=== PATIENT | male | born 1955 | race American Indian/Alaskan Native ===

== ENCOUNTER 2019-11-17 17:21 | Emergency (ER) | payer MEDICARE ==
[2019-11-17 17:32] VITALS: BP 195/83
[2019-11-17] MEDS ORDERED: LACTULOSE 20 GM/30 ML ORAL LIQD PO ONE (20:18)
[2019-11-17] MEDS ORDERED: MAGNESIUM CITRATE 300 ML ORAL LIQD PO ONE (20:18)
[2019-11-17] MEDS ORDERED: GLYCERIN ADULT 2 GRAM RECT SUPP PR ONE (20:18)
--- NOTE | 2019-11-17 21:01 | XRay Report ---
FLAT AND UPRIGHT VIEWS OF THE ABDOMEN, 5 IMAGES INDICATION: constipation. COMPARISON: No relevant prior imaging study available. FINDINGS: No free air is identified. Phleboliths are noted in the pelvis. Constipation is noted. No dilated loops of small bowel. IMPRESSION: 1. Constipation. Signer Name: Phillip Castellon MD Signed: 11/17/2019 8:57 PM Workstation Name: [id number]
--- NOTE | 2019-11-17 21:48 | Emergency Department Report ---
ED Abdominal Pain HPI - General Chief Complaint: Rectal Pain Stated Complaint: HEMMROID/PAIN Source: patient Mode of arrival: Ambulatory Limitations: No Limitations - History of Present Illness Initial Comments: Patient is a 64-year-old -Swiss male with history of hypertension who presents to the ED with complaint of acute onset persistent rectal pain from external hemorrhoids due to constipation for the last 3 days. Patient states that he went to an urgent care clinic for low back pain and was prescribed Robaxin, tramadol and ibuprofen and has been taking this medication for the last 5 days. Patient states that 3 days ago he stopped having a bowel movement and since then he has been trying to have a bowel movement with no relief. Patient states that the last 2 days the external hemorrhoids have increased in size with worsening rectal pain since he has not been able to have any bowel movement. Patient denies nausea, vomiting, fever, chills, abdominal pain, dizziness, syncope, chest pain, shortness of breath, dysuria, urinary frequency and urgency or headache and testicular pain or rectal bleeding. MD Complaint: abdominal pain (constipated), other (rectal pain due to hemorrhoids) -: Sudden, days(s) (3) Location: diffuse Radiation: none Migration to: no migration Severity scale (0 -10): 3 Quality: aching Consistency: constant Improves With: nothing Worsens With: bowel movement Context: other (constipation from opioid pain medications) Associated Symptoms: denies other symptoms, anorexia. denies: nausea, vomiting, diarrhea, fever, chills, constipation, dysuria, hematemesis, hematochezia, melena, hematuria, syncope - Related Data Previous Rx's Medication Instructions Recorded Last Taken Type Dibucaine 1% [Nupercainal] 1 applicatio [place] Q8H #1 tube 11/17/19 Unknown Rx Glycerin Adult 2 gm 3 gm [place] DAILY PRN #10 supp.rect 11/17/19 Unknown Rx Hydrocortisone [Anusol-Hc 2.5% TOP 1 applic RC Q12H #1 cream..g. 11/17/19 Unknown Rx CREAM] Magnesium Citrate 296 ml PO ONCE #3 bottle 11/17/19 Unknown Rx Allergies Allergy/AdvReac Type Severity Reaction Status Date / Time No Known Allergies Allergy Verified 11/17/19 17:23 ED Review of Systems ROS: Stated complaint: HEMMROID/PAIN Other details as noted in HPI Constitutional: denies: chills, fever Eyes: denies: eye pain, eye discharge, vision change ENT: denies: ear pain, throat pain Respiratory: denies: cough, shortness of breath, wheezing Cardiovascular: denies: chest pain, palpitations Endocrine: no symptoms reported Gastrointestinal: constipation, other (rectal pain from hemorrhoids). denies: abdominal pain, nausea, diarrhea Genitourinary: denies: urgency, dysuria Musculoskeletal: denies: back pain, joint swelling, arthralgia Skin: denies: rash, lesions Neurological: denies: headache, weakness, paresthesias Psychiatric: denies: anxiety, depression Hematological/Lymphatic: denies: easy bleeding, easy bruising ED Past Medical Hx - Past Medical History Previous Medical History?: Yes Hx Hypertension: Yes - Surgical History Past Surgical History?: Yes Additional Surgical History: back surgery - Social History Smoking Status: Never Smoker Substance Use Type: None - Medications Home Medications: Home Medications Medication Instructions Recorded Confirmed Last Taken Type Dibucaine 1% [Nupercainal] 1 applicatio [place] Q8H #1 tube 11/17/19 Unknown Rx Glycerin Adult 2 gm 3 gm [place] DAILY PRN #10 supp.rect 11/17/19 Unknown Rx Hydrocortisone [Anusol-Hc 2.5% TOP 1 applic RC Q12H #1 cream..g. 11/17/19 Unknown Rx CREAM] Magnesium Citrate 296 ml PO ONCE #3 bottle 11/17/19 Unknown Rx ED Physical Exam - General Limitations: No Limitations General appearance: alert, in no apparent distress - Head Head exam: Present: atraumatic, normocephalic, normal inspection - Eye Eye exam: Present: normal appearance, PERRL, EOMI - ENT ENT exam: Present: normal exam, normal orophraynx, mucous membranes moist, TM's normal bilaterally, normal external ear exam - Neck Neck exam: Present: normal inspection, full ROM - Respiratory Respiratory exam: Present: normal lung sounds bilaterally. Absent: respiratory distress, wheezes, rales, rhonchi, chest wall tenderness, accessory muscle use, decreased breath sounds, prolonged expiratory - Cardiovascular Cardiovascular Exam: Present: regular rate, normal rhythm, normal heart sounds. Absent: systolic murmur, diastolic murmur, rubs, gallop - GI/Abdominal GI/Abdominal exam: Present: soft, normal bowel sounds. Absent: tenderness, guarding, rebound, hyperactive bowel sounds, hypoactive bowel sounds - Rectal Rectal exam: Present: hemorrhoids (external hemorrhoids with tenderness), tenderness (palpable rectal tenderness due to prominent external hemorrhoids) - Extremities Exam Extremities exam: Present: normal inspection, full ROM, normal capillary refill - Back Exam Back exam: Present: normal inspection, full ROM. Absent: tenderness, CVA tenderness (R), CVA tenderness (L), muscle spasm, paraspinal tenderness, vertebral tenderness - Neurological Exam Neurological exam: Present: alert, oriented X3, CN II-XII intact, normal gait, reflexes normal - Psychiatric Psychiatric exam: Present: normal affect, normal mood - Skin Skin exam: Present: warm, dry, intact, normal color. Absent: rash ED Course Vital Signs 11/17/19 17:31 Temperature 99.2 F Pulse Rate 85 Respiratory 14 Rate Blood Pressure 195/83 [Right] O2 Sat by Pulse 98 Oximetry ED Medical Decision Making - Radiology Data Radiology results: report reviewed, image reviewed Findings [facility] [address] [place] [address] XRay Report Signed Patient: COMFORT MARTE MR#: [id number] : 1955 Acct:[id number] Age/Sex: 64 / M ADM Date: 11/17/19 Loc: ED Attending Dr: Ordering Physician: JONO WOOD Date of Service: 11/17/19 Procedure(s): XR abdomen 2V Accession Number(s): [id number] cc: JONO WOOD Fluoro Time In Minutes: FLAT AND UPRIGHT VIEWS OF THE ABDOMEN, 5 IMAGES INDICATION: constipation. COMPARISON: No relevant prior imaging study available. FINDINGS: No free air is identified. Phleboliths are noted in the pelvis. Constipation is noted. No dilated loops of small bowel. IMPRESSION: 1. Constipation. Signer Name: Phillip Castellon MD Signed: 11/17/2019 8:57 PM Workstation Name: [id number] Transcribed By: KYLIE Dictated By: Phillip Castellon MD Electronically Authenticated By: Phillip Castellon MD Signed Date/Time: 11/17/192056 DD/ 55 TD/TT: - Medical Decision Making This is a 64-year-old -Swiss male with history of hypertension who presents to the ED with complaint of acute onset persistent rectal pain from external hemorrhoids due to constipation for the last 3 days. Patient states that he went to an urgent care clinic for low back pain and was prescribed Robaxin, tramadol and ibuprofen and has been taking this medication for the last 5 days. Patient states that 3 days ago he stopped having a bowel movement and since then he has been trying to have a bowel movement with no relief. Patient states that the last 2 days the external hemorrhoids have increased in size with worsening rectal pain since he has not been able to have any bowel movement. In the ED, patient is alert and oriented x3 and is not in distress but appears to be uncomfortable. Abdomen x-ray shows constipation. Patient was treated for constipation in the ED and also given prescription for more stool softeners and laxatives as well as ointment for the hemorrhoids. Patient was advised to follow-up with his primary care physician in 3 to 5 days for reevaluation or return to the ED immediately if symptoms get worse. Patient was also advised to stop taking tramadol as this may be the cause of his constipation. - Differential Diagnosis Constipation; hemorrhoids; rectal abscess; SBO Critical care attestation.: If time is entered above; I have spent that time in minutes in the direct care of this critically ill patient, excluding procedure time. ED Disposition Clinical Impression: External hemorrhoids, Constipation due to opioid therapy Disposition: DC-01 TO HOME OR SELFCARE Is pt being admited?: No Does the pt Need Aspirin: No Condition: Stable Instructions: Hemorrhoids (ED), Constipation (ED) Additional Instructions: Take medication as advised, drink plenty of fluids and follow-up with your primary care physician in 3 to 5 days for reevaluation. Return to the ED immediately if symptoms get worse. Prescriptions: Hydrocortisone [Anusol-Hc 2.5% TOP CREAM] 1 applic RC Q12H #1 cream..g. Glycerin Adult 2 gm 3 gm TX DAILY PRN #10 supp.rect PRN Reason: Constipation Magnesium Citrate 296 ml PO ONCE #3 bottle Dibucaine 1% [Nupercainal] 1 applicatio TX Q8H #1 tube Referrals: MIGUEL CHIN MD [Primary Care Provider] - 3-5 Days Time of Disposition: 21:55 Print Language: DIVEHI
== END 2019-11-17 22:16 | disposition home or self-care (01) ==
LOC: ED 17:21
DX: K64.4 Residual hemorrhoidal skin tags (principal); K59.00 Constipation, unspecified; I10 Essential (primary) hypertension; Z79.899 Other long term (current) drug therapy; Z98.890 Other specified postprocedural states
CPT/HCPCS: 74019

== ENCOUNTER 2021-09-09 08:30 | Emergency (ER) | payer MEDICARE ==
[2021-09-09 08:43] VITALS: BP 188/80
[2021-09-09] MEDS ORDERED: hydroCHLOROthiazide 25 MG TAB PO ONE (09:36)
--- NOTE | 2021-09-09 09:42 | Emergency Department Report ---
ED General Adult HPI - General Chief complaint: High BP Stated complaint: HIGH BLOOD PRESSURE PUI?: No Source: patient Mode of arrival: Ambulatory Limitations: No Limitations - History of Present Illness Initial comments: Patient is a 65-year-old male presents emergency department complaint of episode of dizziness after climbing up the stairs on yesterday. Patient states that he is known to have elevated blood pressures as been diagnosed with hypertension however has not been taking a antihypertensive for the past few months. Patient previously was on hydrochlorothiazide, unsure of dose. Patient reports that he did not have chest pain when he had the episode of dizziness. He did not pass out. Patient notes that he has history of chronic back pain for which she takes meloxicam occasionally. Patient denies any episodes of headache, change in vision, chest pain, shortness of breath, numbness tingling or weakness in the arms or legs. Treatments Prior to Arrival: none - Related Data Previous Rx's Medication Instructions Recorded Last Taken Type Dibucaine 1% [Nupercainal] 1 applicatio [place] Q8H #1 tube 11/17/19 Unknown Rx Glycerin Adult 2 gm 3 gm [place] DAILY PRN #10 supp.rect 11/17/19 Unknown Rx Hydrocortisone [Anusol-Hc 2.5% TOP 1 applic RC Q12H #1 cream..g. 11/17/19 Unknown Rx CREAM] Magnesium Citrate 296 ml PO ONCE #3 bottle 11/17/19 Unknown Rx hydroCHLOROthiazide [Hctz] 12.5 mg PO QDAY 30 Days #30 capsule 09/09/21 Unknown Rx Allergies Allergy/AdvReac Type Severity Reaction Status Date / Time No Known Allergies Allergy Verified 11/17/19 17:23 ED Review of Systems ROS: Stated complaint: HIGH BLOOD PRESSURE Other details as noted in HPI Constitutional: denies: chills, fever Eyes: denies: vision change ENT: denies: throat pain Respiratory: denies: cough, shortness of breath, SOB with exertion Cardiovascular: denies: chest pain, syncope Endocrine: no symptoms reported Gastrointestinal: denies: abdominal pain, nausea, vomiting Genitourinary: denies: dysuria Musculoskeletal: back pain (chronic) Skin: denies: rash Neurological: denies: headache, weakness Psychiatric: denies: anxiety, depression Hematological/Lymphatic: denies: easy bleeding ED Past Medical Hx - Past Medical History Previous Medical History?: Yes Hx Hypertension: Yes - Surgical History Past Surgical History?: Yes Additional Surgical History: back surgery - Social History Smoking Status: Never Smoker Substance Use Type: None - Medications Home Medications: Home Medications Medication Instructions Recorded Confirmed Last Taken Type Dibucaine 1% [Nupercainal] 1 applicatio [place] Q8H #1 tube 11/17/19 Unknown Rx Glycerin Adult 2 gm 3 gm OK DAILY PRN #10 supp.rect 11/17/19 Unknown Rx Hydrocortisone [Anusol-Hc 2.5% TOP 1 applic RC Q12H #1 cream..g. 11/17/19 Unknown Rx CREAM] Magnesium Citrate 296 ml PO ONCE #3 bottle 11/17/19 Unknown Rx hydroCHLOROthiazide [Hctz] 12.5 mg PO QDAY 30 Days #30 capsule 09/09/21 Unknown Rx ED Physical Exam - General Limitations: No Limitations General appearance: alert, in no apparent distress - Head Head exam: Present: atraumatic, normocephalic - Eye Eye exam: Present: normal appearance - ENT ENT exam: Present: mucous membranes moist - Neck Neck exam: Present: normal inspection - Respiratory Respiratory exam: Present: normal lung sounds bilaterally. Absent: respiratory distress - Cardiovascular Cardiovascular Exam: Present: regular rate, normal rhythm. Absent: systolic murmur, diastolic murmur, rubs, gallop - GI/Abdominal GI/Abdominal exam: Present: soft, normal bowel sounds - Rectal Rectal exam: Present: deferred - Extremities Exam Extremities exam: Present: normal capillary refill, other (chronic atrophy to the R thigh). Absent: pedal edema - Back Exam Back exam: Present: normal inspection - Neurological Exam Neurological exam: Present: alert, oriented X3 - Psychiatric Psychiatric exam: Present: normal affect, normal mood - Skin Skin exam: Present: warm, dry, intact ED Course Vital Signs 09/09/21 08:38 Temperature 98.6 F Pulse Rate 58 L Respiratory 18 Rate Blood Pressure 188/80 O2 Sat by Pulse 98 Oximetry - Reevaluation(s) Reevaluation #1: 09/09/21 11:40 EKG and labs are reassuring. At this time patient has no evidence of end organ damage. Patient feels improved. Given this plan for discharge with patient to have close follow-up with primary care ED Medical Decision Making - Lab Data Result diagrams: 09/09/21 10:14 09/09/21 10:14 - EKG Data -: EKG Interpreted by Me EKG shows normal: sinus rhythm Rate: bradycardia - EKG Data When compared to previous EKG there are: no significant change Interpretation: normal EKG - Medical Decision Making Patient is a 65-year-old male presents emergency department with complaint of episode of dizziness on yesterday. Patient no longer has any symptoms of dizziness and had no CP, headache, SOB or other concerning symptoms. He does however have elevated blood pressures with history of hypertension not currently on medications. Will evaluate fully for ACS, evidence of endorgan damage with EKG, labs, urinalysis. If if labs grossly normal plan for discharge with prescription for antihypertensive as well as instructions to make lifestyle modifications and follow-up with primary care closely. Critical care attestation.: If time is entered above; I have spent that time in minutes in the direct care of this critically ill patient, excluding procedure time. ED Disposition Clinical Impression: Hypertension Disposition: 01 HOME / SELF CARE / HOMELESS Is pt being admited?: No Does the pt Need Aspirin: No Condition: Stable Instructions: Hypertension, Adult, [id number], Hypertension (ED) Prescriptions: hydroCHLOROthiazide [Hctz] 12.5 mg PO QDAY 30 Days #30 capsule Referrals: MALIK VILLASEÑOR MD [Staff Physician] - 3-5 Days Forms: Work/School Release Form(ED) Time of Disposition: 11:40 Print Language: MALAY
[2021-09-09 11:15] LABS: Alanine Aminotransferase 23 units/L (7-56); Albumin 4.5 g/dL (3.9-5); BUN/Creatinine Ratio 13; Blood Urea Nitrogen 14 mg/dL (9-20); Calcium 9.7 mg/dL (8.4-10.2); Hemolysis Index 18
[2021-09-09 11:16] LABS: Hematocrit 35.5 % (35.5-45.6); Hemoglobin 12.5 gm/dl (11.8-15.2); Mean Corpuscular HGB Conc 35 % (32-34); Mean Corpuscular Volume 90 fl (84-94); Platelet Count 168 K/mm3 (140-440); Red Blood Count 3.95 M/mm3 (3.65-5.03); Red Cell Distribution Width 12.9 % (13.2-15.2)
--- NOTE | 2021-09-11 13:10 | Electrocardiograph Report ---
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
== END 2021-09-09 11:55 | disposition home or self-care (01) ==
LOC: ED 08:30
DX: I10 Essential (primary) hypertension (principal); Z98.890 Other specified postprocedural states
CPT/HCPCS: 36415; 80053; 83735; 84484; 85027; 93005; 93010; 99283

== ENCOUNTER 2022-01-27 15:15 | Emergency (ER) | payer MEDICARE ==
--- NOTE | 2022-01-27 17:09 | XRay Report ---
RIGHT HIP 2 VIEWS INDICATION / CLINICAL INFORMATION: Right hip pain after fall. COMPARISON: None available. FINDINGS: BONES and JOINT(S): No acute fracture or subluxation. No significant arthritis. SOFT TISSUES: No significant abnormality. ADDITIONAL FINDINGS: None. IMPRESSION: 1. No acute findings. Signer Name: Christian Stephen MD Signed: 01/27/2022 5:04 PM Workstation Name: [id number]
[2022-01-27] MEDS ORDERED: KETOROLAC 30 MG/1 ML INJ IM ONE (19:44)
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
[2022-01-27 20:15] VITALS: BP 189/81
== END 2022-01-27 20:41 | disposition home or self-care (01) ==
LOC: ED 15:15
DX: M25.551 Pain in right hip (principal); I10 Essential (primary) hypertension
CPT/HCPCS: 73502; 96372; 99283; J1885